=== PATIENT | female | born 1960 | race Caucasian/White ===

== ENCOUNTER 2021-07-22 10:49 | Emergency (ER) | payer OTHER ==
[~2021-07-22] VITALS: Ht 170.2 cm; Wt 85.3 kg
--- NOTE | 2021-07-22 11:20 | NUR ---
DR MARTINEZ AT THE BEDSIDE
--- NOTE | 2021-07-22 11:26 | NUR ---
URINE COLLECTED AND SENT TO THE LAB
[2021-07-22] MEDS ORDERED: IV NS 0.9% 1,000 ML IV ONE (11:30)
[2021-07-22] MEDS ORDERED: KETOROLAC TROMETHAMINE INJ 30 MG/ML VIAL IV ONE (11:30)
[2021-07-22] MEDS ORDERED: CEFEPIME 1 GM in IV D5W 50 ML IV ONE (11:30)
[2021-07-22] MEDS ORDERED: ACETAMINOPHEN 650 MG/SUPP.RECT RC ONE ×2 (11:30→11:44)
--- NOTE | 2021-07-22 11:41 | NUR ---
COVIS SWAB DONE AND SENT TO THE LAB
[2021-07-22 11:42] LABS: BILIRUBIN,URINE NEGATIVE (NEGATIVE); COLOR,URINE YELLOW (YELLOW); LEUKOCYTE ESTERASE ,URINE NEGATIVE (NEGATIVE); NITRITE, URINE NEGATIVE (NEGATIVE); PROTEIN,URINE 30 mg/dl (NEGATIVE); UGLUCOSE NEGATIVE (NEGATIVE); UROBILINOGEN,URINE 0.2 EU/dL (0.2)
[2021-07-22] MEDS ORDERED: KETOROLAC TROMETHAMINE 15 MG/ML VIAL ONE (11:44)
--- NOTE | 2021-07-22 11:51 | NUR ---
ECG TECH AT THE BEDSIDE
--- NOTE | 2021-07-22 11:51 | NUR ---
PHLEBATOMIST AT THE BEDSIDE
--- NOTE | 2021-07-22 12:03 | NUR ---
MOVE SHEET SUBMITTED.
[2021-07-22] MEDS ORDERED: ZINC1CAP3 GT (12:04)
[2021-07-22] MEDS ORDERED: NA P133E RC (12:04)
[2021-07-22] MEDS ORDERED: HEPA50008 SQ (12:04)
[2021-07-22] MEDS ORDERED: ALBU8.5H8 IH ×2 (12:04)
[2021-07-22] MEDS ORDERED: IPRA12.9 IH ×2 (12:04)
[2021-07-22] MEDS ORDERED: SENN-261 GT (12:04)
[2021-07-22] MEDS ORDERED: VALP250S4 GT (12:04)
[2021-07-22] MEDS ORDERED: ACET-868 GT ×2 (12:04)
[2021-07-22] MEDS ORDERED: ASCO-352 GT (12:04)
[2021-07-22] MEDS ORDERED: NS C250O2 GT (12:04)
[2021-07-22] MEDS ORDERED: MULT-447 GT (12:04)
[2021-07-22] MEDS ORDERED: DOXA2TAB2 GT (12:04)
[2021-07-22] MEDS ORDERED: CEFT2VIA64 IV (12:04)
[2021-07-22] MEDS ORDERED: CLOB20TA3 GT (12:04)
[2021-07-22] MEDS ORDERED: BISA10SU11 RC (12:04)
[2021-07-22] MEDS ORDERED: TOPI100T38 GT (12:04)
[2021-07-22] MEDS ORDERED: MAGN400O6 GT (12:04)
[2021-07-22] MEDS ORDERED: LACO10SO GT (12:04)
[2021-07-22] MEDS ORDERED: PANT40SU2 GT (12:04)
[2021-07-22] MEDS ORDERED: PSYL3.4P6 GT (12:04)
[2021-07-22] MEDS ORDERED: FERR300L GT (12:04)
[2021-07-22] MEDS ORDERED: LACT20SO4 GT (12:04)
[2021-07-22] MEDS ORDERED: AMIN30LI2 GT (12:04)
[2021-07-22] MEDS ORDERED: LEVE500T9 GT (12:04)
[2021-07-22] MEDS ORDERED: FOLI0.4T6 GT (12:04)
--- NOTE | 2021-07-22 12:04 | NUR ---
COVID SWAB DONE AND SENT TO THE LAB
[2021-07-22] MEDS ORDERED: VANC1FRO2 IV (12:06)
[2021-07-22 12:07] LABS: BACTERIA,URINE Few /HPF (None Seen); COARSE GRANULAR CASTS,URINE Few /LPF (None Seen); HYALINE CASTS, URINE Few /LPF (None Seen); SQUAMOUS EPITHELIAL CELL,UR Moderate /HPF (None Seen); YEAST,URINE Few /HPF (None Seen)
--- NOTE | 2021-07-22 12:10 | NUR ---
WAITING FOR PHLEBATOMIST TO GET LACTIC ACID PRIOR ADMINISTERING FLUIDS AND ANTIBIOTIC. DR MARTINEZ AWARE.
--- NOTE | 2021-07-22 12:39 | NUR ---
PHLEBATOMIST AT THE BEDSIDE
[2021-07-22 14:39] LABS: BASOPHILS # (AUTO) 0.1 K/uL (0.0-0.2); BASOPHILS % (AUTO) 0.7 % (0.0-2.0); HEMATOCRIT 23 % (33-45); HEMOGLOBIN 7.4 g/dL (11.5-14.8); LYMPHOCYTES # (AUTO) 1.3 K/uL (0.8-4.8); LYMPHOCYTES % (AUTO) 15.4 % (20.0-44.0); MEAN CORPUSCULAR HGB CONC 32 g/dl (31.0-36.0); MEAN CORPUSCULAR VOLUME 81 fL (82-100); MONOCYTES # (AUTO) 0.6 K/uL (0.1-1.30); MONOCYTES % (AUTO) 7.3 % (2.0-12.0); NEUTROPHILS # (AUTO) 6.5 K/uL (1.8-8.9); NEUTROPHILS % (AUTO) 75.6 % (43.0-81.0); PLATELET COUNT (AUTO) 110 K/uL (150-450); RED BLOOD CELL COUNT(AUTO) 2.91 MIL/uL (4.0-5.2); WHITE BLOOD COUNT (AUTO) 8.5 K/uL (4.3-11.0)
[2021-07-22 14:49] LABS: CALCIUM, SERUM 8.9 mg/dL (8.5-10.1); CREATININE 0.8 mg/dL (0.6-1.3); POTASSIUM 3.9 mmol/L (3.5-5.1)
[2021-07-22] MEDS ORDERED: ASPIRIN 300 MG/SUPP.RECT RC ONE ×2 (15:00→15:21)
[2021-07-22 15:08] LABS: BILIRUBIN,DIRECT 0.1 mg/dL (0.0-0.2); BILIRUBIN,TOTAL 0.2 mg/dL (0.2-1.0); TOTAL PROTEIN, SERUM 6.5 g/dL (6.4-8.2)
--- NOTE | 2021-07-22 15:27 | NUR ---
SPOKE WITH [employer] OPERATOR KITA ([phone]) WHO STATED THAT SHE WILL PAGED THEIR DOCTOR FOR PEER TO PEER REPORT.
[2021-07-22] MEDS ORDERED: VANCOMYCIN 1 GM in IV D5W 250 ML IV ONE (16:00)
--- NOTE | 2021-07-22 16:14 | NUR ---
[facility] FROM [facility] FAX [phone] FACE SHEET TEL [phone]
--- NOTE | 2021-07-22 16:25 | NUR ---
WAITING FOR PHARMACY TO DELIVER THE VANCO Addendum: 07/22/21 at 1626 by KASSANDRA FOLLOW UP CALL IS MADE
--- NOTE | 2021-07-22 16:58 | NUR ---
MADE DR ROY AWARE THAT THE PATIENT`S BLOOD PRESSURE IS 87/83 AND HR IS 83. STATED THAT HE WILL ENTER AN ORDER.
--- NOTE | 2021-07-22 17:05 | NUR ---
PT ACCEPTED TO [facility] IN [place] [address] CALL [phone] FOR REPORT. Addendum: 07/22/21 at 1804 by LSLLUVIASYAN FOR REPORT CALL [phone]
--- NOTE | 2021-07-22 17:06 | NUR ---
WILL CALL US WITH TRANSPORT INFORMATION.
[2021-07-22] MEDS ORDERED: IV NS 0.9% 1,000 ML BAG IV ONE (17:30)
--- NOTE | 2021-07-22 17:41 | NUR ---
[facility] WILL BE HERE AT 1930
--- NOTE | 2021-07-22 18:56 | NUR ---
REPORT GIVEN TO NURSE CHINO FROM [facility]
[2021-07-22 19:00] VITALS: BP 135/75
--- NOTE | 2021-07-22 19:20 | NUR ---
REPORT GIVEN TO NURSE BROOKS
--- NOTE | 2021-07-22 20:09 | NUR ---
REPORT GIVEN TO EMT, PT TRANSFERED TO [place].
== END 2021-07-22 20:23 | disposition short-term general hospital (02) ==
LOC: ER 10:54
DX: I21.4 Non-ST elevation (NSTEMI) myocardial infarction (principal); D64.9 Anemia, unspecified; R50.9 Fever, unspecified; R91.8 Other nonspecific abnormal finding of lung field; Z20.822 Contact with and (suspected) exposure to COVID-19; G40.909 Epilepsy, unspecified, not intractable, without status epilepticus; R00.0 Tachycardia, unspecified; E78.5 Hyperlipidemia, unspecified; R53.2 Functional quadriplegia; Z93.0 Tracheostomy status; Z93.1 Gastrostomy status; D69.6 Thrombocytopenia, unspecified; J81.1 Chronic pulmonary edema; E88.09 Other disorders of plasma-protein metabolism, not elsewhere classified
CPT/HCPCS: 36415; 70450; 71045; 80048; 80076; 80202; 81001; 83605; 84145; 84484; 85025; 85730; 87040 ×2; 87086; 93005; 96361; 96365; 96367; 96375; 99291; C9803; J0692; J1885; J3370; J7030 ×2; J7060; U0003